=== PATIENT | male | born 1955 | race African-American/Black ===

== ENCOUNTER 2025-08-12 06:43 | Emergency (ER) | payer MEDICARE, MEDICAID ==
[~2025-08-12] VITALS: Ht 175.3 cm; Wt 73.0 kg
[~2025-08-12 06:43] MED LIST: BUPR-113 PO; DICL75TA5 MT; HYDR-4009 PO; OMEP20CA14 MT; P20 PO; PREG75CA PO
[2025-08-12 06:44] VITALS: O2SAT 100
[2025-08-12] MEDS: FLUORESCEIN SODIUM 1MG/STRIP BOTHEYE ONE (07:00)
[2025-08-12] MEDS: TETRACAINE 0.5% OPHTH DROPS 4ML BOTHEYE ONE (07:00)
[2025-08-12] MEDS: ACETAMINOPHEN 325MG TABLET PO ONE ×2 (07:30→13:30)
[2025-08-12 09:07] VITALS: TEMP 37.1
[2025-08-12] MEDS: ERYTHROMYCIN BASE 0.5% OPHTH OINT 3.5GM BOTHEYE ONE (09:45)
[2025-08-12] MEDS ORDERED: ERYT1OIN6 EACHEYE (13:16)
[2025-08-12] MEDS ORDERED: MOXI3DRO12 EACHEYE (13:19)
[2025-08-12] MEDS ORDERED: MAXOS EACHEYE (13:25)
[2025-08-12] MEDS ORDERED: TOBR5DRO70 EACHEYE (13:25)
[2025-08-12 14:02] VITALS: BP 122/62; PULSE 97; RESP 18; O2SAT 100
== END 2025-08-12 14:05 | disposition home or self-care (01) ==
LOC: ER 06:43
DX: H16.009 Unspecified corneal ulcer, unspecified eye (principal); E11.9 Type 2 diabetes mellitus without complications; I10 Essential (primary) hypertension; Z79.899 Other long term (current) drug therapy
CPT/HCPCS: 99284